=== PATIENT | male | born 1975 | race Caucasian/White ===

== ENCOUNTER 2021-10-02 18:21 | Emergency (ER) | payer BC ==
[2021-10-02] MEDS ORDERED: Sodium Chloride 0.9% 1,000 ML IV ONE ×2 (19:13→23:16)
[2021-10-02] MEDS ORDERED: Ondansetron 4 MG/2 ML SDV IVPUSH ONE ×2 (19:14→21:50)
[2021-10-02] MEDS ORDERED: Morphine 4 MG/ML VIAL IVPUSH ONE (19:14)
[2021-10-02 20:07] LABS: CARBON DIOXIDE,CO2 21.3 mmol/L (21.0-32.0); POTASSIUM,K 3.6 mmol/L (3.5-5.1)
[2021-10-02] MEDS ORDERED: HYDROmorphone 1 MG/ML Syringe IVPUSH ONE ×3 (20:16→23:53)
[2021-10-02] MEDS ORDERED: Iopamidol 755 MG/ML 500 ML Multipack Bottle IVPUSH STA ×2 (21:40→23:52)
[2021-10-03] MEDS ORDERED: Piperacillin/Tazobactam 3.375 GM in Sodium Chloride 0.9% 50 ML IV ONE (00:14)
[2021-10-03] MEDS ORDERED: Sodium Chloride 0.9% 1,000 ML IV ONE (02:01)
== END 2021-10-03 04:59 ==
LOC: MW.ED 18:21
DX: S37.10XA Unspecified injury of ureter, initial encounter (principal); U07.1 COVID-19; X58.XXXA Exposure to other specified factors, initial encounter
CPT/HCPCS: 36415; 74177; 80053; 81001; 83690; 85025; 85610; 87635; 93005; 96361; 96365; 96375; 96376; 99285; J1170; J2270; J2405; J2543; J7030; Q9967; U0002